=== PATIENT | male | born 1990 | race Caucasian/White ===

== ENCOUNTER 2017-02-10 11:25 | Emergency (ER) | payer SELFPAY ==
[~2017-02-10] VITALS: Ht 180.3 cm; Wt 106.6 kg
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
[~2017-02-10 11:25] MED LIST: MIRALAX255 GM PO
== END 2017-02-10 13:52 | disposition home or self-care (01) ==
LOC: CFTX 11:25 → CED 11:25 → CFTX 13:09
DX: S80.12XA Contusion of left lower leg, initial encounter (principal); F17.210 Nicotine dependence, cigarettes, uncomplicated; W22.8XXA Striking against or struck by other objects, initial encounter; Y92.009 Unspecified place in unspecified non-institutional (private) residence as the place of occurrence of the external cause
CPT/HCPCS: 29540; 73590; 73610; 73630; 99283